=== PATIENT | male | born 1945 | race Caucasian/White ===

== ENCOUNTER → 2022-01-26 09:37 | Outpatient (CLI) | payer MEDICARE, SELFPAY ==
--- NOTE | ~2022-01-26 | XR_ITS ---
EXAMINATION: XR lumbar spine 6V w bending DATE: 01/26/2022 10:01 INDICATION: Low back pain. Ankylosing hyperostosis, site unspecified. TECHNIQUE: 7 views of lumbar spine including flexion and extension views were obtained. COMPARISON: None. FINDINGS: There is 3 mm retrolisthesis of L1 on L2 and L2 on L3. The spine is hypomobile with flexion and extension. Vertebral body heights are normal. There is mildly decreased disc height at L1-L2 and L2-L3 and L5-S1. There are endplate osteophytes at all levels. The endplate osteophytes are bridging anteriorly from T11to L1. There is severe bilateral facet joint osteoarthritis from L3-L4 through L 5-S1. IMPRESSION: 1. Mild lumbar spondylosis. 2. Diffuse idiopathic skeletal hyperostosis (DISH). Reviewed, dictated and finalized at location A.
== END ==
PROVIDERS: PCP Family Medicine; Visit Provider Family Medicine
DX: M47.816 Spondylosis without myelopathy or radiculopathy, lumbar region (principal); M48.16 Ankylosing hyperostosis [Forestier], lumbar region
CPT/HCPCS: 72114

== ENCOUNTER 2023-01-15 09:43 | Emergency (ER) | payer MEDICARE, SELFPAY ==
--- NOTE | 2023-01-15 09:50 | ED.GENADULT ---
HPI - General Adult General Chief complaint: Upper Respiratory Infection Stated complaint: cough,sorethroat Time Seen by Provider: 01/15/23 09:50 Source: patient Mode of arrival: ambulatory Limitations: no limitations History of Present Illness HPI narrative: 77-year-old male patient presents to the [facility] with complaints of cough sore throat for the past 3 days. Patient states the cough just got worse last night. Patient states the cough is worse when he lays down at night. Denies any chest pain or shortness of breath. Denies any fevers, body aches or chills. Patient states he has been taking some [id number] cold and flu medication as well some leftover amoxicillin that he had from a previous infection. Patient states neither medications seems to be helping. Patient states he did do a COVID test prior to arrival which did come up negative. Related Data Home Medications Medication Instructions Recorded Confirmed albuterol sulfate 90 mcg/actuation 2 inhalation inhalation Q4H PRN 10/18/19 01/15/23 aerosol inhaler Shortness Of Breath atenolol 25 mg tablet 25 mg PO DAILY 10/18/19 01/15/23 Allergies Allergy/AdvReac Type Severity Reaction Status Date / Time No Known Allergies Allergy Unknown Verified 01/15/23 10:03 Review of Systems Review of Systems: CONSTITUTIONAL: Denies fever, chills, or sweats. EYES: Denies visual changes, redness, or discharge. ENT: positive rhinorrhea, congestion, positive sore throat, denies otalgia. CARDIOVASCULAR: Denies chest pain, palpitations, or edema. RESPIRATORY: Positive cough , denies dyspnea. GASTROINTESTINAL: Denies abdominal pain, nausea, vomiting, or diarrhea. GENITOURINARY: Denies dysuria or hematuria. SKIN: Denies rash or itching. MUSCULOSKELETAL: Denies back pain, joint pain, or myalgia. NEUROLOGIC: Denies headache, numbness, or weakness. PSYCHIATRIC: Denies anxiety or depression. [facility] Past Medical History Medical History (Updated 01/15/23 @ 10:28 by SAMRA Fox) Asymptomatic carotid artery stenosis Benign essential HTN CKD (chronic kidney disease) stage 3, GFR 30-59 ml/min Creatinine elevation Degenerative arthritis of thoracic spine DISH (disseminated idiopathic skeletal hyperostosis) GERD with stricture Reactive airway disease SVT (supraventricular tachycardia) Ventricular tachycardia Vitamin B12 deficiency Surgical History Surgical History (Updated 01/15/23 @ 09:52 by SAMRA Fox) H/O inguinal hernia repair History of orthopedic surgery right Achilles tendon repair Family History Family History Father Hypertension Family history of congestive heart failure Mother Hypertension Social History Social History Alcohol intake: never Comments At the time of my signature I agree with nursing past medical history, surgical, social, and family history. There is no relevant family history pertinent to the presenting complaint. Exam Narrative: GENERAL: Well-appearing, well-nourished, and in no acute distress. HEAD: Normocephalic, atraumatic. EYES: PERRLA and EOMI. ENT: Nares clear, no rhinorrhea or epistaxis. Mucous membranes moist. posterior pharynx with no erythema, tonsillar joint, exudates or lesions present. Bilateral TMs are clear no erythema foreign bodies the canal. NECK: Supple. No lymphadenopathy CHEST: Clear to auscultation. No respiratory distress. HEART: Regular rate and rhythm. No murmur heard. Normal peripheral pulses. ABDOMEN: Soft, nontender, nondistended, normal active bowel sounds. EXTREMITIES: Normal range of motion. No edema. SKIN: Warm, dry, no rash. NEURO: No focal deficits. Alert and oriented x3. Course Course Level of Care: Express Care Visit Vital Signs Vital signs: Vital Signs Temperature 36.4 C 01/15/23 10:02 Pulse Rate 55 L 01/15/23 10:02 Respiratory Rate 18 03/0
[2023-01-15 10:02] VITALS: BP 121/66; PULSE 55; RESP 18; TEMP 36.4; O2SAT 97
== END 2023-01-15 10:31 | disposition home or self-care (01) ==
PROVIDERS: Emergency Provider Nurse Practitioner Family; PCP Family Medicine
DX: J32.9 Chronic sinusitis, unspecified (principal); J06.9 Acute upper respiratory infection, unspecified; I12.9 Hypertensive chronic kidney disease with stage 1 through stage 4 chronic kidney disease, or unspecified chronic kidney disease; N18.30 Chronic kidney disease, stage 3 unspecified
CPT/HCPCS: 87081; 87880; 99213; G0463